=== PATIENT | female | born 1980 | race Caucasian/White ===

== ENCOUNTER 2019-10-13 19:39 | Emergency (ER) | payer OTHER ==
[~2019-10-13] VITALS: Ht 175.3 cm; Wt 61.7 kg
== END 2019-10-13 22:19 | disposition home or self-care (01) ==
LOC: ER 19:39
DX: O26.891 Other specified pregnancy related conditions, first trimester (principal); R10.84 Generalized abdominal pain; Z34.01 Encounter for supervision of normal first pregnancy, first trimester